=== PATIENT | male | born 1960 | race Caucasian/White ===

== ENCOUNTER → 2024-02-03 | Outpatient (CLI) | payer BC ==
--- NOTE | 2024-02-03 09:41 | MR ---
EXAMINATION TYPE: MR Prostate wo/w con DATE OF EXAM: 02/03/2024 9:23 AM COMPARISON: None. CLINICAL INDICATION: Male, 63 years old with history of R97.20 ELEVATED PSA; Elevated PSA. TECHNIQUE: Multi-planar, multi-sequence imaging of the pelvis is performed prior to and following the uncomplicated administration of bolus intravenous gadolinium. IV Contrast: 8 mL Gadobutrol Interpretive Criteria: PI-RADS v2.1 SERUM PSA: 06-24-23 = 7.20 - = 6.43 SURGICAL PATHOLOGY: 05/25/2021 negative biopsy. FINDINGS: Prostatic dimensions: 5.3 x 4.9 x 4.6 cm. Ellipsoid Volume:62.55 (PSA density=0.12 ng/mL/mL CENTRAL GLAND (Central and Transition Zones/CZ+TZ): Multiple bilateral, heterogenous appearing hypertrophic stromal nodules, without suspicious lesion. M edian lobe hypertrophy with protrusion into the base of the bladder. (PI-RADS 2) PERIPHERAL ZONE (PZ): Bilateral linear, indistinct wedgelike areas of low ADC, and low T2 signal, No evidence of masslike a bnormality, or localized perfusional hypervascularity, to further suggest a focus of clinically signi ficant prostate cancer. (PI-RADS 2) SEMINAL VESICLES (SV): Symmetric and unremarkable. PERIPROSTATIC TISSUES: Unremarkable. LYMPH NODES: No enlarged pelvic lymph node. REMAINING PELVIS: Bladder wall is within normal limits given distention. No abnormal free or organized intrapelvic fluid collection. No pathologic bowel dilation or mural thickening. Bilateral fat containing inguinal hernias. OSSEOUS STRUCTURES: No suspicious osseous abnormality. IMPRESSION: 1. No specific features for high-risk prostate cancer. Maximum PI-RADS score: 2. 2. Moderate BPH, estimated gland volume 62.55 mL. 3. No suspicious osseous lesion. No lymphadenopathy. No evidence of prostate adenocarcinoma involving the periprostatic tissues. [facility], , 02/03/2024 9:39 AM
== END | disposition home or self-care (01) ==
LOC: RADMRIMAIN 07:51
PROVIDERS: ATTEND Urology
DX: N40.0 Benign prostatic hyperplasia without lower urinary tract symptoms (principal); R97.20 Elevated prostate specific antigen [PSA]
CPT/HCPCS: 72197; A9585